=== PATIENT | female | born 1955 | race Caucasian/White ===

== ENCOUNTER 2019-02-06 05:29 | Inpatient (IN) | payer OTHER ==
[2019-02-03 16:24] VITALS: Ht 157.5 cm; Wt 57.0 kg
[2019-02-06] VITALS (28 sets, daily range): BP systolic 110–147; BP diastolic 61–87; PULSE 18–90; RESP 13–21
[~2019-02-06] VITALS: Ht 157.5 cm; Wt 57.0 kg
--- NOTE | 2019-02-06 05:46 | HPN ---
Date/Time of Note Date/Time of Note DATE: 02/06/19 TIME: 05:46 Interval H&P Admission Note Pt. seen H&P reviewed: No system changes MAGGY HALL MD Feb 06, 2019 05:46
--- NOTE | 2019-02-06 05:48 | OPR ---
Date/Time of Note Date/Time of Note DATE: 02/06/19 TIME: 05:46 Operative Report Procedure Date: Feb 06, 2019 Preoperative Diagnosis Right hip primary arthritis Postoperative Diagnosis Right hip primary arthritis Operation/Procedure Performed 1. Right total hip arthroplasty 2. Right hip injection PRP Surgeon see signature line Screen Examiner Asad Darby MD Second Screen Examiner: KAYLEY SWEENEY PA-C Anesthesia Type: general Estimated Blood Loss: 100 - 150 ml's Transfusion none Specimen None Grafts/Implants See op note Complications none Pt Condition Post Procedure: stable Disposition: PACU Procedure Description [employer] WORKER SURGEON: Asad Darby MD was asked to be present at my request as a result of the complexity associated with this procedure including positioning of the extremity, positioning of the instrumentation and protection of the neurovascular structures. In my opinion, the assistance offered by a neurosurgical physician assistant is insufficient and Dr. Darby should be compensated for his time. PROCEDURE IN DETAIL: Following the administration of general endotracheal anesthesia supplemented with a spinal anesthetic, the patient was placed in the supine position. The antecubital fossa on the right was prepped and 60 cc of blood were aspirated. Under sterile conditions, the blood was passed off to the telephone sales representative from the company who prepared the PRP solution. The right lower extremity was then prepped and draped in the usual sterile fashion. A rough patcher radiograph was obtained for preliminary limb length and femoral size as well as acetabular size. There was severe arthritic changes noted. Over the right hip, a lateral incision was then made exposing the tensor fascia the fascia was incised the tensor was retracted laterally and the vessels were cauterized. The anterior capsule was then identified and prepared. A capsulectomy was then performed and the femoral head was then evaluated. Severe arthritic changes were noted. A femoral head cut was then made in the appropriate degree of version and inclination. Following dislocation, severe arthritic changes were noted with very certain severe cystic changes in the femoral head. The acetabulum was then exposed and a capsulectomy and labrectomy were completed. The central portion was then entered and serially reamed up to the 49 mm size. A Depuy Bushnell cup which was 50 mm, with a standard liner was then fit into position with solid fixation. A 30 mm screw was used for additional fixation. Attention was then directed to the femur, the femur was exposed and prepared. The canal was entered and serially reamed up to the size 4, standard offset. The femoral canal was then thoroughly irrigated and the PRP solution was then instilled into the femoral canal. A size 4 standard offset Depuy Actis stem was then inserted with solid fixation. A 36 mm, +1.5 mm femoral head, which was ceramic was then inserted. The leg was taken through full range of motion with no evident instability. In addition, radiographs revealed excellent position with reproduction of the limb lengths within a millimeter. The wound was irrigated thoroughly. The wound was then closed in layers and a Prenio for the final cover. This was watertight. Estimated blood loss was procedure was 150 cc. Postoperative radiographs will be obtained in the recovery room. MAGGY HALL MD Feb 06, 2019 05:47
[2019-02-06] MEDS ORDERED: CEFAZOLIN 2 GM/50 ML (PMX) 50 ML IVPB SCH (06:30)
[2019-02-06] MEDS ORDERED: LACTATED RINGER'S 1,000 ML IV ONE (06:30)
[2019-02-06] MEDS ORDERED: DEXAMETHASONE 1 MG TAB PO SCH (06:30)
[2019-02-06] MEDS ORDERED: TRANEXAMIC ACID 1GM/100ML(PMX) 100 ML IVPB SCH (06:30)
[2019-02-06] MEDS ORDERED: GABAPENTIN 300 MG CAP PO SCH (06:30)
[2019-02-06] MEDS ORDERED: SOD CHLORIDE 0.9% 100 ML, TRANEXAMIC ACID 3,000 MG IRR SCH ×2 (06:30)
[2019-02-06] MEDS ORDERED: BUPIVACAINE 0.5% (SDV) 30 ML, morphine SULFATE (PF) 8 MG, EPINEPHrine 0.3 MG, KETOROLAC... IRR SCH ×7 (06:30)
--- NOTE | 2019-02-06 06:48 | PREAC ---
Date/Time of Note Date/Time of Note DATE: 02/06/19 TIME: 06:47 Anesthesia Eval and Record Evaluation Time Pre-Procedure Interview DATE: 02/06/19 TIME: 06:47 Age 63 Sex female NPO: 8 hrs Preoperative diagnosis right hip osteoarthritis Planned procedure right total hip arthroplasty Past Medical History Past Medical History: Includes Cardio: HTN Musculoskeletal: Osteoarthritis Surgery & Anesthesia Issues No known issue Meds Anticoagulation: No Beta Pablo within 24 hr: No Reason Beta Pablo not given: Pt. not on B-Pablo Current Medications Cefazolin Sodium/ Dextrose 50 ml @ 100 mls/hr PRE-OP IVPB ; Start 02/06/19 at 06:30; Stop 02/06/19 at 16:00 Tranexamic Acid 100 ml @ 200 mls/hr Pre-op IVPB ; Start 02/06/19 at 06:30; Stop 02/06/19 at 16:00 Sodium Chloride/ Tranexamic Acid INTRA-OP IRR ; Start 02/06/19 at 06:30; Stop 02/06/19 at 16:00 Bupivacaine HCl/ Morphine Sulfate/ Epinephrine/ Ketorolac Tromethamine/ Clonidine/Sodium Chloride/ Vancomycin HCl INTRA-OP IRR ; Start 02/06/19 at 06:30 Dexamethasone (Decadron) 2 mg PREOP PO Last administered on 02/06/19at 06:03; Admin Dose 2 MG; Start 02/06/19 at 06:30; Stop 02/06/19 at 16:00 Gabapentin (Neurontin) 300 mg ONCE PO Last administered on 02/06/19at 06:03; Admin Dose 300 MG; Start 02/06/19 at 06:30; Stop 02/06/19 at 16:00 Meds reviewed: Yes Allergies Coded Allergies: No Known Allergy (Unverified , 02/05/19) Allergies Reviewed: Yes Labs/Studies Labs Reviewed: Reviewed by anesthesiologist test: N/A Pre-procedure Exam Last vitals Vital Signs Date Temp Pulse Resp B/P (MAP) Pulse Ox O2 O2 Flow FiO2 Time Delivery Rate 02/06/19 97.6 57 18 147/87 100 Room Air 06:10 (107) Airway: Adequate mouth opening, Adequate thyromental dist Mallampati: Mallampati II Teeth: Normal Lung: Normal Heart: Normal ASA Physical Status ASA physical status: 2 Emergency: None Planned Anesthetic General/MAC: LMA Neuraxial: Spinal Planned Pain Management Sub-arachniod narcotics, Parenteral pain med, Local by surgeon Pre-operative Attestations Prior to commencing anesthesia and surgery, the patient was re-evaluated, there was verification of: *The patient's identity *The results of appropriate recent lab work and preoperative vital signs *The above evaluation not changing prior to induction *Anesthetic plan, risk benefits, alternative and complications discussed with patient/family; questions answered; patient/family understands, accepts and wishes to proceed. TEX BENAVIDES MD Feb 06, 2019 06:48
[2019-02-06] MEDS ORDERED: POLYMYXIN/BACITRACIN 1L IRRIG ONE (06:49)
[2019-02-06] MEDS ORDERED: LOSA50TA14 PO (06:50)
[2019-02-06] MEDS ORDERED: AMLO5TAB4 PO (06:50)
[2019-02-06] MEDS ORDERED: MIDAZOLAM 1 MG/ML 2 ML INJ ONE (07:00)
[2019-02-06] MEDS ORDERED: LIDOCAINE 2% (SDV) 5 ML INJ ONE (07:02)
[2019-02-06] MEDS ORDERED: PROPOFOL 20 ML ONE (07:02)
[2019-02-06] MEDS ORDERED: FENTAnyl 50 MCG/ML VIAL ONE (07:02)
[2019-02-06] MEDS ORDERED: CEFAZOLIN 1 GM INJ ONE (07:32)
[2019-02-06] MEDS ORDERED: TRANEXAMIC ACID 1GM/100ML(PMX) 100 ML ONE ×2 (07:37→08:57)
[2019-02-06] MEDS ORDERED: THROMBIN 5000 UNIT VIAL ONE (07:48)
[2019-02-06] MEDS ORDERED: CA CHLORIDE 10% 10 ML SYRINGE ONE (07:48)
[2019-02-06] MEDS ORDERED: DEXAMETHASONE 4 MG/ML 5 ML INJ ONE (07:50)
[2019-02-06] MEDS ORDERED: ONDANSETRON 4 MG INJ ONE (07:50)
[2019-02-06] MEDS ORDERED: EPHEDrine 25 MG/5 ML SYG ONE (07:50)
[2019-02-06] MEDS ORDERED: FAMOTIDINE 20 MG INJ ONE (07:50)
[2019-02-06] MEDS ORDERED: OXYCODONE/ACETAMINOPHEN (5/325) TAB PO PRN (08:30)
[2019-02-06] MEDS ORDERED: EPHEDrine 25 MG/5 ML SYG IV PRN (08:30)
[2019-02-06] MEDS ORDERED: PROCHLORPERAZINE 10 MG INJ IV PRN (08:30)
[2019-02-06] MEDS ORDERED: HYDROmorphONE 1 MG/5 ML IV SYRINGE IV PRN ×3 (08:30)
[2019-02-06] MEDS ORDERED: hydrALAzine 20 MG INJ IV PRN (08:30)
[2019-02-06] MEDS ORDERED: MEPERIDINE 25 MG INJ IV PRN (08:30)
[2019-02-06] MEDS ORDERED: FENTAnyl 50 MCG/ML VIAL IV PRN (08:30)
[2019-02-06] MEDS ORDERED: DIPHENHYDRAMINE 50 MG INJ IV PRN ×2 (08:30→09:00)
[2019-02-06] MEDS ORDERED: ONDANSETRON 4 MG INJ IV PRN ×2 (08:30→09:00)
[2019-02-06] MEDS ORDERED: ROPIVACAINE 0.5 % 30 ML VIAL ONE (08:54)
[2019-02-06] MEDS ORDERED: ZOLPIDEM 5 MG TAB PO PRN (09:00)
[2019-02-06] MEDS ORDERED: NACL 0.9% 3 ML SYG IV SCH (09:00)
[2019-02-06] MEDS ORDERED: HYDROmorphONE 1 MG/ML SYG IV PRN (09:00)
[2019-02-06] MEDS ORDERED: MAGNESIUM HYDROXIDE 30ML CUP PO PRN (09:00)
[2019-02-06] MEDS ORDERED: oxyCODONE 5 MG TAB PO PRN (09:00)
--- NOTE | 2019-02-06 09:26 | PAC ---
Date/Time of Note Date/Time of Note DATE: 02/06/19 TIME: 09:26 Post-Anesthesia Notes Post-Anesthesia Note Last documented vital signs Vital Signs Date Temp Pulse Resp B/P (MAP) Pulse Ox O2 O2 Flow FiO2 Time Delivery Rate 02/06/19 98.0 08:13 02/06/19 57 18 147/87 100 Room Air 06:10 (107) Activity: WNL Respiratory function: WNL Cardiovascular function: WNL Mental status: Baseline Pain reasonably controlled: Yes Hydration appropriate: Yes Nausea/Vomiting absent: Yes Comments BP: 111/67 HR: 80 RR: 15 T: 97.5 SaO2: 100% TEX BENAVIDES MD Feb 06, 2019 09:26
[2019-02-06] MEDS: LACTATED RINGER'S 1,000 ML IV SCH ×2 (09:35→16:13)
[2019-02-06] MEDS: CEFAZOLIN 1 GM/50 ML (PMX) 50 ML IVPB SCH ×2 (09:36→17:22)
[2019-02-06] MEDS: ACETAMINOPHEN 1000MG/100ML IV 100 ML IVPB SCH ×2 (09:36→17:22)
[2019-02-06] MEDS: SENNA/DOCUSATE NA (8.6MG/50MG) TAB PO SCH ×2 (11:05→21:04)
[2019-02-06] MEDS: DEXAMETHASONE 2 MG TAB PO SCH ×2 (12:55→17:24)
--- NOTE | 2019-02-06 13:41 | PDOCDIS ---
Discharge Instructions DIAGNOSIS Discharge Diagnosis Primary hip arthritis CONDITION [id number] Patient Condition: [id number] Good HOME CARE INSTRUCTIONS: [id number] Diet Instructions: [id number] Regular ACTIVITY: [id number] Activity Restrictions: [id number] Slowly Increase Activity Keep Limb Elevated [id number] Bathing Restrictions: [id number] Shower FOLLOW UP/APPOINTMENTS Follow-up Plan 2 weeks in the office SCHOOL/WORK RELEASE May return to School/Work with: With Restrictions School/Work Release Comment: No hip extension for 6 weeks MAGGY HALL MD Feb 06, 2019 13:41
[2019-02-06] MEDS: oxyCODONE 5 MG TAB PO PRN ×2 (14:28→19:39)
[2019-02-06] MEDS: AMLODIPINE 5 MG TAB PO SCH (21:00)
[2019-02-06] MEDS: LOSARTAN 50 MG TAB PO SCH (21:00)
[2019-02-06] MEDS: GABAPENTIN 300 MG CAP PO SCH (21:03)
[2019-02-07 00:08] VITALS: BP 108/64; PULSE 79; RESP 18
[2019-02-07] MEDS: DEXAMETHASONE 2 MG TAB PO SCH ×2 (00:35→05:20)
[2019-02-07] MEDS: oxyCODONE 5 MG TAB PO PRN ×6 (00:36→20:50)
[2019-02-07] MEDS: ACETAMINOPHEN 1000MG/100ML IV 100 ML IVPB SCH (00:36)
[2019-02-07] MEDS: CEFAZOLIN 1 GM/50 ML (PMX) 50 ML IVPB SCH (01:07)
[2019-02-07] MEDS: LACTATED RINGER'S 1,000 ML IV SCH ×2 (03:54→14:40)
--- NOTE | 2019-02-07 05:45 | PN ---
Date/Time of Note Date/Time of Note DATE: 02/07/19 TIME: 05:45 Subjective Awake and alert with no complaints this morning. Objective Vitals Vital Signs Date Temp Pulse Resp B/P (MAP) Pulse Ox O2 O2 Flow FiO2 Time Delivery Rate 02/07/19 97.8 79 18 108/64 99 00:08 (79) 02/06/19 Nasal 15:26 Cannula 02/06/19 2.0 14:45 Intake and Output 02/06/19 02/06/19 02/07/19 1515:00 23:00 07:00 IntakeIntake Total 2100 ml 2320 ml OutputOutput Total 700 ml 3250 ml BalanceBalance 1400 ml -930 ml Wound clean and dry. Neurologically intact. No signs of DVT. Results Result Diagram: 02/07/19 0429 Medications Medications Current Medications Amlodipine Besylate (Norvasc) 5 mg QPM PO ; Start 02/06/19 at 21:00 Losartan Potassium (Cozaar) 50 mg QPM PO ; Start 02/06/19 at 21:00 Lactated Ringer's 1,000 ml @ 100 mls/hr Q10H IV Last administered on 02/07/19at 03:54; Admin Dose 100 MLS/HR; Start 02/06/19 at 08:40 Senna/Docusate Sodium (Senokot-S) 1 tab BID PO Last administered on 02/06/19at 21:04; Admin Dose 1 TAB; Start 02/06/19 at 09:00 Simethicone (Mylicon) 80 mg TID PRN PO .GAS; Start 02/06/19 at 09:00 Magnesium Hydroxide (Milk Of Mag) 30 ml BID PRN PO .CONSTIPATION Last administered on 02/07/19at 04:10; Admin Dose 30 ML; Start 02/06/19 at 09:00 Magnesium Hydroxide (Milk Of Mag) 30 ml HS PO ; Start 02/08/19 at 21:00 Dexamethasone (Decadron) 2 mg Q6 PO Last administered on 02/07/19at 05:20; Admin Dose 2 MG; Start 02/06/19 at 12:00; Stop 02/07/19 at 06:01 Gabapentin (Neurontin) 300 mg HS PO Last administered on 02/06/19at 21:03; Admin Dose 300 MG; Start 02/06/19 at 21:00 Oxycodone HCl (Roxicodone) 15 mg Q4H PRN PO .PAIN Last administered on 02/06/19at 14:28; Admin Dose 15 MG; Start 02/06/19 at 09:00 Oxycodone HCl (Roxicodone) 10 mg Q4H PRN PO .PAIN Last administered on 02/07/19at 05:20; Admin Dose 10 MG; Start 02/06/19 at 09:00 Oxycodone HCl (Roxicodone) 5 mg Q4H PRN PO .PAIN; Start 02/06/19 at 09:00 Hydromorphone HCl (Dilaudid) 1 mg Q4H PRN IV .BREAKTHROUGH PAIN; Start 02/06/19 at 09:00 Ondansetron HCl (Zofran Inj) 4 mg Q6H PRN IV NAUSEA/VOMITING; Start 02/06/19 at 09:00 Diphenhydramine HCl (Benadryl) 25 mg Q6H PRN IV .PRURITUS; Start 02/06/19 at 09:00 Zolpidem Tartrate (Ambien) 10 mg HS PRN PO .INSOMNIA; Start 02/06/19 at 09:00 IV Flush (NS 3 ml) 3 ml per protocol IV ; Start 02/06/19 at 09:00 Aspirin (Ecotrin) 325 mg DAILY PO ; Start 02/07/19 at 09:00 VTE Prophylaxis Risk score (from Nsg)>0 risk: 5 SCD applied (from Nsg): Yes Lines/Catheters IV Catheter Type: Saline Lock [place] in Place: No Assessment/Plan Assessment/Plan Assessment: Status post total hip replacement Plan: Begin PT this morning. Discharge after. MAGGY HALL MD Feb 07, 2019 05:45
--- NOTE | 2019-02-07 05:46 | DS ---
Date/Time of Note Date/Time of Note DATE: 02/07/19 TIME: 05:45 Discharge Summary Admission/Discharge Info Admit Date/Time Feb 06, 2019 at 05:29 Discharge Date/Time 02/07/2019 Discharge Diagnosis Primary hip arthritis Patient Condition: Good Hospital Course Admitted, underwent uncomplicated procedure. Postop day 1 discharge after PT. Home Meds Reported Medications Amlodipine Besylate* (Norvasc*) 5 Mg Tablet, 5 MG PO QPM, TAB 02/06/19 Losartan Potassium* (Losartan Potassium*) 50 Mg Tablet, 50 MG PO QPM, TAB 02/06/19 Follow-up Plan 2 weeks in the office Primary Care Provider Not On Staff Doctor Pending Labs Laboratory Tests Test 02/06/19 09:44 02/07/19 04:29 White Blood Count 8.4 10^3/ul (4.8-10.8) 22.5 10^3/ul (4.8-10.8) Red Blood Count 3.79 10^6/ul (4.20-5.40) 3.62 10^6/ul (4.20-5.40) Hemoglobin 11.4 g/dl (12.0-16.0) 10.9 g/dl (12.0-16.0) Hematocrit 33.9 % (37.0-47.0) 32.9 % (37.0-47.0) Mean Corpuscular Volume 89.4 fl (82.0-101.0) 90.9 fl (82.0-101.0) Mean Corpuscular 30.1 pg (29.0-33.0) 30.1 pg (29.0-33.0) Hemoglobin Mean Corpuscular 33.6 g/dl (32.0-37.0) 33.1 g/dl (32.0-37.0) Hemoglobin Concent Red Cell Distribution 12.3 % (11.5-14.5) 12.3 % (11.5-14.5) Width Platelet Count 220 10^3/UL (140-415) 234 10^3/UL (140-415) Mean Platelet Volume 10.0 fl (7.4-10.4) 10.6 fl (7.4-10.4) Immature Granulocytes % 0.400 % (0.001-0.429) 0.500 % (0.001-0.429) Neutrophils % 79.3 % (39.0-77.0) 90.8 % (39.0-77.0) Lymphocytes % 16.2 % (15.0-51.0) 4.6 % (15.0-51.0) Monocytes % 3.0 % (0.0-11.0) 4.0 % (0.0-11.0) Eosinophils % 0.6 % (0.0-7.0) 0.0 % (0.0-7.0) Basophils % 0.5 % (0.0-2.0) 0.1 % (0.0-2.0) Nucleated Red Blood Cells 0.0 /100WBC (0.0-0.0) 0.0 /100WBC (0.0-0.0) % Immature Granulocytes # 0.030 10^3/ul (0.0-0.031) 0.120 10^3/ul (0.0-0.031) Neutrophils # 6.6 10^3/ul (1.6-7.5) 20.4 10^3/ul (1.6-7.5) Lymphocytes # 1.4 10^3/ul (0.8-2.9) 1.0 10^3/ul (0.8-2.9) Monocytes # 0.3 10^3/ul (0.3-0.9) 0.9 10^3/ul (0.3-0.9) Eosinophils # 0.1 10^3/ul (0.0-0.5) 0.0 10^3/ul (0.0-0.5) Basophils # 0.0 10^3/ul (0.0-0.1) 0.0 10^3/ul (0.0-0.1) Nucleated Red Blood Cells 0.0 10^3/ul (0.0-0.0) 0.0 10^3/ul (0.0-0.0) MAGYG CANTRELL MD Feb 07, 2019 05:46
[2019-02-07 07:20] VITALS: BP 130/64; PULSE 82; RESP 19
[2019-02-07] MEDS: SENNA/DOCUSATE NA (8.6MG/50MG) TAB PO SCH ×2 (08:21→20:54)
[2019-02-07] MEDS: ASPIRIN (EC) 325 MG TAB PO SCH (09:00)
[2019-02-07 15:48] VITALS: BP 126/72; PULSE 78; RESP 19
[2019-02-07] MEDS ORDERED: NA PHOSPHATE/BIPHOS 133 ML ENEMA PR PRN (20:30)
[2019-02-07] MEDS: GABAPENTIN 300 MG CAP PO SCH (20:54)
[2019-02-07] MEDS: LOSARTAN 50 MG TAB PO SCH (21:00)
[2019-02-07] MEDS: AMLODIPINE 5 MG TAB PO SCH (21:00)
[2019-02-07 21:13] VITALS: BP 136/88; RESP 20
[2019-02-08] MEDS: oxyCODONE 5 MG TAB PO PRN ×3 (02:14→13:47)
[2019-02-08 08:36] VITALS: BP 132/64; PULSE 80; RESP 18
[2019-02-08] MEDS: SENNA/DOCUSATE NA (8.6MG/50MG) TAB PO SCH (08:55)
[2019-02-08] MEDS: ASPIRIN (EC) 325 MG TAB PO SCH (08:55)
[2019-02-08] MEDS ORDERED: MAGNESIUM HYDROXIDE 30ML CUP PO SCH (21:00)
== END 2019-02-08 15:35 | disposition home or self-care (01) | DRG 470 ==
LOC: REC 05:29 → EDBD 07:30 → MS1 11:12
PROVIDERS: ADMIT Orthopaedic Surgery; ATTEND Orthopaedic Surgery
PROC: 0SR904A Replacement of Right Hip Joint with Ceramic on Polyethylene Synthetic Substitute, Uncemented, Open Approach (ICD-10-PCS; principal; 2019-02-06 07:00)
DX: M16.11 Unilateral primary osteoarthritis, right hip (principal); I10 Essential (primary) hypertension
CPT/HCPCS: 72170; 73530; 85025; 86999; 87086; 88304; 88311; 97110; 97116; 97162; 97530; C1713; C1776; J0131; J0171; J0690; J0735; J1100; J1170; J1885; J2250; J2274; J2405; J2795; J3010; J3370; J7120